=== PATIENT | female | born 1955 | race Asian ===

== ENCOUNTER 2017-05-17 06:58 | Day surgery (SDC) | payer OTHER ==
[~2017-05-17] VITALS: Ht 157.5 cm; Wt 69.8 kg
[2017-05-17 07:36] VITALS: BP 125/66
[2017-05-17 11:08] VITALS: BP 116/77
== END 2017-05-17 10:50 | disposition home or self-care (01) ==
LOC: GI 06:58 → OR 08:30 → GI 08:30
PROVIDERS: Internal Medicine Gastroenterology
PROC: 0DB68ZX Excision of Stomach, Via Natural or Artificial Opening Endoscopic, Diagnostic (ICD-10-PCS; 2017-05-17)
PROC: 0D758ZZ Dilation of Esophagus, Via Natural or Artificial Opening Endoscopic (ICD-10-PCS; principal; 2017-05-17 08:30)
PROC: 0DB58ZX Excision of Esophagus, Via Natural or Artificial Opening Endoscopic, Diagnostic (ICD-10-PCS; 2017-05-17 08:30)
DX: K22.4 Dyskinesia of esophagus (principal); R19.2 Visible peristalsis; K21.0 Gastro-esophageal reflux disease with esophagitis; K29.70 Gastritis, unspecified, without bleeding; Z68.28 Body mass index [BMI] 28.0-28.9, adult
CPT/HCPCS: 43235; J1200; J1610; J2250; J2310; J3010; J3490